=== PATIENT | female | born 1965 | race Caucasian/White ===

== ENCOUNTER → 2021-12-06 | Outpatient (REF) | payer OTHER | LOC: M SFHCDERM 14:04 | PROVIDERS: ATTEND Nurse Practitioner Family | DX: D22.5 Melanocytic nevi of trunk (principal) ==

== ENCOUNTER → 2023-02-22 | Outpatient (REF) | payer OTHER | LOC: M SFHCDERM 17:54 | PROVIDERS: ATTEND Nurse Practitioner Family | DX: L82.1 Other seborrheic keratosis (principal) ==

== ENCOUNTER → 2024-12-24 | Outpatient (CLI) | payer OTHER | LOC: M PLAIMG 10:52 | PROVIDERS: ATTEND Physician Assistant | DX: M67.442 Ganglion, left hand (principal) ==

== ENCOUNTER 2025-01-12 08:20 | Day surgery (SDC) | payer OTHER ==
[~2025-01-12] VITALS: Ht 154.9 cm; Wt 62.6 kg
[~2025-01-12 08:20] MED LIST: BLAC40CA PO
[2025-01-12] MEDS ORDERED: LR 1,000 ML IV SCH ×2 (08:45→10:35)
[2025-01-12] MEDS ORDERED: LIDOCAINE 2% 100 MG/5 ML SDV (FOR ANES.) As Ordered ONE (09:19)
[2025-01-12] MEDS ORDERED: ONDANSETRON 4MG 2ML VIAL As Ordered ONE (09:20)
[2025-01-12] MEDS ORDERED: dexAMETHasone 4 MG/ML 1 ML VIAL As Ordered ONE (09:20)
[2025-01-12] MEDS ORDERED: MIDAZOLAM INJ 2 MG/2 ML VIAL As Ordered ONE (09:22)
[2025-01-12] MEDS ORDERED: KETOROLAC 30 MG/ML 1 ML VIAL As Ordered ONE (09:22)
[2025-01-12] MEDS: ceFAZolin SOD 2 GM IV ONCE IV ONE (09:54)
[2025-01-12] MEDS ORDERED: HYDROMORPHONE HCL 0.5 MG/0.5 ML SYRINGE IV PRN (10:35)
[2025-01-12] MEDS: ONDANSETRON 4MG 2ML VIAL IV PRN (11:06)
[2025-01-12 11:25] VITALS: BP 109/61; TEMP 96.9; O2SAT 97
== END 2025-01-12 11:48 | disposition home or self-care (01) ==
LOC: M SDC 08:20
PROVIDERS: ATTEND Orthopaedic Surgery Hand Surgery
DX: D48.19 Other specified neoplasm of uncertain behavior of connective and other soft tissue (principal); Z88.0 Allergy status to penicillin; Z91.013 Allergy to seafood; Z90.710 Acquired absence of both cervix and uterus
CPT/HCPCS: 26115; 88305; J0665; J0688; J1100; J1885; J2250; J2405; J3010